=== PATIENT | male | born 1960 | race Caucasian/White ===

== ENCOUNTER 2019-03-01 17:24 | Emergency (ER) | payer OTHER ==
[2019-03-01] MEDS ORDERED: Bacitracin Oint 1 GM U/D Packet TOP ONE (17:25)
[2019-03-01] MEDS ORDERED: Diphtheria,Pertussis(Acell),Tetanus Vaccine 0.5 ML SDV IM ONE (17:39)
--- NOTE | 2019-03-01 17:43 | EDM.PDOC ---
ED HPI GENERAL MEDICAL PROBLEM - General Chief Complaint: General Stated Complaint: FISH HOOK IN LEFT POINTER FINGER Time Seen by Provider: 03/01/19 17:35 Source of Information: Reports: Patient History Limitations: Reports: No Limitations - History of Present Illness INITIAL COMMENTS - FREE TEXT/NARRATIVE: Olayinka is a 58 year old male, presents with fish hook to left index finger, enters just at base of nail. Denies any other injury. uncertain of last DT. Onset: Today, Sudden - Related Data Allergies Allergy/AdvReac Type Severity Reaction Status Date / Time Penicillins Allergy Hives Verified 03/01/19 17:38 Home Meds: Home Meds amLODIPine [Norvasc] 10 mg PO DAILY 03/01/19 [History] hydroCHLOROthiazide [Hydrochlorothiazide] 25 mg PO DAILY 03/01/19 [History] ED ROS GENERAL - Review of Systems Review Of Systems: ROS reveals no pertinent complaints other than HPI. ED EXAM, GENERAL - Physical Exam Exam: See Below Exam Limited By: No Limitations General Appearance: Alert, WD/WN, No Apparent Distress Throat/Mouth: Normal Inspection Head: Atraumatic, Normocephalic Neck: Normal Inspection, Supple, Non-Tender Respiratory/Chest: No Respiratory Distress Cardiovascular: Regular Rate, Rhythm Back Exam: Normal Inspection Extremities: Normal Inspection, Normal Range of Motion Neurological: Alert, Oriented, CN II-XII Intact Psychiatric: Normal Affect, Normal Mood Skin Exam: Warm, Dry, Other (one hook of treble hook in left index finger, just under proximal to nail) Lymphatic: No Adenopathy Course - Vital Signs Last Recorded V/S: Last Vital Signs Temp 36.6 C 03/01/19 17:35 Pulse 87 03/01/19 17:35 Resp 16 03/01/19 17:35 BP 152/79 H 03/01/19 17:35 Pulse Ox 97 03/01/19 17:35 Fish hook left index finger, anesthetized with local block using 2 ml's of 1% lidocaine, pushed through, removed intact. DT updated. Bacitracin and band aid applied. Wound care discussed as well as reasons to return to the ED. Patient agreeable and discharged in stable condition - Orders/Labs/Meds Orders: Active Orders 24 hr Category Date Time Status Vaccines to be Administered [RC] PER UNIT ROUTINE Care 03/01/19 17:39 Ordered Diphth,Pertuss(Acell),Tet Vac [Adacel] Med 03/01/19 17:39 Once 0.5 ml IM .ONCE ONE Meds: Medications Discontinued Medications Generic Name Dose Route Start Last Admin Trade Name Mann PRN Reason Stop Dose Admin Bacitracin 1 dose 03/01/19 17:25 03/01/19 17:33 Bacitracin Oint 1 Gm TOP 03/01/19 17:26 1 dose ONETIME ONE Administration Lidocaine HCl 5 ml 03/01/19 17:25 03/01/19 17:33 Xylocaine-Mpf 1% INJECT 03/01/19 17:26 5 ml ONETIME ONE Administration Departure - Departure Time of Disposition: 18:00 Disposition: Home, Self-Care 01 Condition: Good Clinical Impression: Fish hook injury of finger of left hand Qualifiers: Encounter type: initial encounter Qualified Code(s): S69.92XA - Unspecified injury of left wrist, hand and finger(s), initial encounter - Discharge Information Instructions: Hand or Foot Foreign Body, Adult Referrals: PCP,None [Primary Care Provider] - - My Orders Last 24 Hours: My Active Orders 03/01/19 17:39 Vaccines to be Administered [RC] PER UNIT ROUTINE Diphth,Pertuss(Acell),Tet Vac [Adacel] 0.5 ml IM .ONCE ONE - Assessment/Plan Last 24 Hours: My Active Orders 03/01/19 17:39 Vaccines to be Administered [RC] PER UNIT ROUTINE Diphth,Pertuss(Acell),Tet Vac [Adacel] 0.5 ml IM .ONCE ONE
== END 2019-03-01 17:50 | disposition home or self-care (01) ==
LOC: JP.ED 17:24
DX: S60.451A Superficial foreign body of left index finger, initial encounter (principal); Z23 Encounter for immunization; Z88.0 Allergy status to penicillin; Z79.899 Other long term (current) drug therapy; W45.8XXA Other foreign body or object entering through skin, initial encounter
CPT/HCPCS: 90471; 90715; 99282; J2001